=== PATIENT | female | born 1980 | race Caucasian/White ===

== ENCOUNTER → 2017-06-07 | Outpatient (CLI) | payer SELFPAY ==
[2017-06-07 12:01] LABS: TOTAL VOLUME, URINE 1650 ML
[2017-06-07 12:27] LABS: CREATININE FOR GFR 0.92 MG/DL (0.55-1.02); CREATININE, SERUM 0.9 MG/DL (0.6-1.0); GLOMERULAR FILTRATION RATE > 60.0 (>60)
[2017-06-07 12:43] LABS: CREATININE CLEARANCE, URINE 23.3 ML/MIN (75-115)
== END ==
LOC: M LRY 10:11
PROVIDERS: ATTEND Internal Medicine Nephrology
DX: Z00.5 Encounter for examination of potential donor of organ and tissue (principal)

== ENCOUNTER → 2017-07-05 | Outpatient (CLI) | payer SELFPAY ==
[2017-07-05 19:04] LABS: CREATININE FOR GFR 0.89 MG/DL (0.55-1.02); GLOMERULAR FILTRATION RATE > 60.0 (>60)
== END ==
LOC: M LRY 11:39
PROVIDERS: ATTEND Internal Medicine Nephrology
DX: Z00.5 Encounter for examination of potential donor of organ and tissue (principal)

== ENCOUNTER → 2017-07-05 | Outpatient (REF) | payer SELFPAY ==
[2017-07-05 21:07] LABS: TOTAL VOLUME, URINE 1850 ML
[2017-07-05 21:10] LABS: CREATININE, SERUM 0.9 MG/DL (0.6-1.0)
== END ==
LOC: M LAB REF 18:27
PROVIDERS: ATTEND Internal Medicine Nephrology
DX: Z00.5 Encounter for examination of potential donor of organ and tissue (principal)

== ENCOUNTER → 2019-09-02 | Outpatient (REF) | payer OTHER | LOC: M SFHCLERA 10:18 | PROVIDERS: ATTEND Physician Assistant | DX: J02.9 Acute pharyngitis, unspecified (principal) ==